=== PATIENT | male | born 1955 | race Caucasian/White ===

== ENCOUNTER → 2017-05-23 | Outpatient (CLI) | payer OTHER ==
[~2017-05-23] MED LIST: LISI40TA PO; MISC1CAP60 PO; MISCCAP3 PO
== END | disposition home or self-care (01) ==
LOC: C.CPL 16:32
PROVIDERS: ATTEND Otolaryngology
DX: Z01.810 Encounter for preprocedural cardiovascular examination (principal)

== ENCOUNTER → 2017-05-31 | Day surgery (SDC) | payer OTHER ==
[2017-05-30 07:30] VITALS: Ht 177.8 cm; Wt 72.7 kg
--- NOTE | 2017-05-30 15:56 | History and Physical: Surg Cnt ---
History & Physical Date May 30, 2017. Chief Complaint growth left cheek History of Present Illness The patient is a 61 year old male with complaints of enlarging lesion under left eye, ulcerating Additional History Hepatic Disease: No Endocrine Disorder: No Kidney Disease: No Hypertension: No Heart Disease: No Bleeding Tendencies: No Infectious Diseases: No Allergies Coded Allergies: No Known Allergies (Unverified , 05/30/17) Home Medications Scheduled Lisinopril (Zestril), 40 MG PO QPM Misc Natural Products (Saw [place]), 1 CAP PO QPM Misc Natural Products (Pumpkin Seed Oil), 1 CAP PO QPM Physical Examination Skin: warm/dry, no rash ENT: + pertinent finding (1.5 cm. raised lesion with ulceration left infrorbital) Diagnosis basal cell Ca. Plan of Treatment excision with nasolabial flap reconstruction, frozen section, explained risks
[~2017-05-31] VITALS: Ht 177.8 cm; Wt 72.7 kg
[~2017-05-31] MED LIST changes: +LIDO 2%/EPINEPHRINE 1:100000 20 ML VIAL INFIL ONE; +MUPIROCIN 2% OINT 22 GM TUBE ONE
--- NOTE | 2017-05-31 10:18 | History & Physical Bridge Note ---
H&P Re-Evaluation Bridge Note: I have examined the patient, reviewed the History & Physical and in the interval since the performance of the History & Physical I have noted the following changes of clinical significance: No changes noted
--- NOTE | 2017-05-31 12:33 | [facility] Operative Report ---
Operative Report Operative Date May 31, 2017. Pre-Operative Diagnosis Left Cheek Basal Cell Post-Operative Diagnosis Same Procedure(s) Performed Left Cheek Basal Cell Excision With Frozen Section Surgeon Dr. Betts Capital Project Engineer Surgeon(s) None Estimated Blood Loss 1 Findings Basal cell carcinoma involving medial and deep margin therefore additional margins were taken. Specimens A. Left Cheek Basal Cell - Tag at 12 o'clock. Sent as FROZEN Section at 1051. B. Deep and Medial Margins - suture at 12 o'clock. Sent as permanent specimen. C. Additional Deep Margin - Sent as permanent specimen. Anesthesia local Complication(s) None Disposition Recovery Room / PACU Implants None Indications 61-year-old gentleman with an ulcerative exophytic raised lesion of the left lower cheek of 1.5 cm diameter Description of Procedure The patient was brought to the operating room placed in the supine position and he was prepped with Hibiclens. The left infraorbital nerve was blocked with 1% Xylocaine with 1 100,000 strength epinephrine. Local was also used around the excision site. This was in the infraorbital area with approximately 1.5 cm elliptical raised lesion. The excision therefore was approximately 2 cm which was made using the #15 blade and then carried down to the fascial layer. Bleeders were controlled using the needlepoint Bovie. Frozen section showed involvement of the medial margin and also of the deep margin. Therefore an additional medial margin along with the deep margin was excised using the 15 blade and the iris scissors. An additional deep margin was also taken. A small arterial bleed at this deep side was clamped with a hemostat and then tied using a 4-0 chromic tie. Due to the large size of the defect, nasal labial flap was delineated, incised, and elevated to rotate into the defect. The subcutaneous layer was closed with interrupted 4-0 chromic sutures. The skin was closed with interrupted 5-0 nylon sutures rotating the nasal labial flap laterally into the defect. This was a superior based nasolabial flap with the medial margin placed along the nasolabial fold. Bactroban ointment was placed over the incision. He tolerated the procedure well was taken to the recovery area in satisfactory condition. I attest to the content of the Intraoperative Record and any orders documented therein. Any exceptions are noted below.
--- NOTE | 2017-05-31 12:37 | Discharge Instructions-SurgCtr ---
Discharge Instructions Date of Service May 31, 2017. Visit Reason for Visit: Left Cheek Basal Cell Discharge Discharge Diagnosis / Problem: basal cell carcinoma Discharge Goals Goal(s): Therapeutic intervention Activity Recommendations Activity Limitations: resume your previous activity Anesthesia . Post Anesthesia Instructions: If you have had General Anesthesia or IV Sedation: * Do not drive today. * Resume driving when surgeon permits. * Do not make important decisions or sign legal documents today. * Call surgeon for: 1. Temperature elevations greater than 101 degrees F. 2. Uncontrollable pain. 3. Excessive bleeding. 4. Persistent nausea and vomiting. 5. Medication intolerance (nausea, vomiting or rash). * For nausea and vomiting use only clear liquids such as: tea, soda, bouillon until nausea subsides, then gradually increase diet as tolerated. * If you have any concerns or questions, call your surgeon's office. If physician is unavailable and it is an emergency, call 911 or go to the nearest emergency room. . Instructions / Follow-Up Instructions / Follow-Up 1 used ice pack on the left cheek. 2 Apply Bactroban ointment twice a day after cleaning with peroxide and Q-tips [address] Betts's office 1 week from Sunday for suture removal Used Tylenol or ibuprofen for discomfort. Call Dr. Betts, cell phone for any problems Diet Recommendations Home Diet: no limitations Procedures Procedures Performed: Left Cheek Basal Cell Excision With Frozen Section Pending Studies Studies pending at discharge: yes List of pending studies: Pathology Medical Emergencies . Who to Call and When: Medical Emergencies: If at any time you feel your situation is an emergency, please call 911 immediately. . Non-Emergent Contact Non-Emergency issues call your: Primary Care Provider . . "Provider Documentation" section prepared by Urvashi Betts. . [place] Drug Monitoring Program Search Results: no issues identified
[2017-05-31 12:51] VITALS: BP 177/88; PULSE 86; TEMP 37.7; O2SAT 97
== END | disposition home or self-care (01) ==
LOC: X.SURG 07:18
PROVIDERS: ATTEND Otolaryngology
DX: C44.319 Basal cell carcinoma of skin of other parts of face (principal); Z79.899 Other long term (current) drug therapy

== ENCOUNTER → 2017-11-08 | Day surgery (SDC) | payer OTHER ==
--- NOTE | 2017-11-07 12:06 | History and Physical: Surg Cnt ---
History & Physical Date Nov 07, 2017. Chief Complaint growth left face History of Present Illness The patient is a 61 year old male with complaints of basal cell Ca left cheek Additional History Hepatic Disease: No Endocrine Disorder: No Kidney Disease: No Hypertension: No Heart Disease: No Bleeding Tendencies: No Infectious Diseases: No Allergies Coded Allergies: No Known Allergies (Unverified , 05/31/17) Home Medications Scheduled Lisinopril (Zestril), 40 MG PO QPM Misc Natural Products (Saw Rule), 1 CAP PO QPM Misc Natural Products (Pumpkin Seed Oil), 1 CAP PO QPM Physical Examination Skin: warm/dry, no rash Eyes: normal inspection, EOMI, sclerae normal ENT: normal ENT inspection, pharynx normal Head: normocephalic, atraumatic Neck: supple, no adenopathy, trachea midline Respiratory/Chest: lungs clear, normal breath sounds, no respiratory distress Cardiovascular: regular rate, rhythm, no edema, no murmur Abdomen / GI: normal bowel sounds, non tender Back: normal inspection Extremities: normal inspection, normal range of motion Neurologic/Psych: no motor/sensory deficits, alert, normal reflexes, oriented x 3 Diagnosis basal cell Ca Plan of Treatment excision left face with frozen section
[2017-11-07 13:27] VITALS: Ht 177.8 cm; Wt 72.7 kg
[~2017-11-08] VITALS: Ht 177.8 cm; Wt 72.7 kg
[~2017-11-08] MED LIST changes: +BACITRACIN OINT 15 GM TUBE ONE; +IBUPROFEN 600 MG TAB PO PRN; -MUPIROCIN 2% OINT 22 GM TUBE ONE; +OXYCODONE/ACETAMINOPHEN 5-325 TAB PO PRN; +SODIUM CHLORIDE 0.9% 1000ML 1,000 ML IV SCH
--- NOTE | 2017-11-08 11:22 | Discharge Instructions-SurgCtr ---
Discharge Instructions Date of Service Nov 08, 2017. Visit Reason for Visit: Left Face Basal Cell Discharge Discharge Diagnosis / Problem: same Discharge Goals Goal(s): Diagnostic testing Activity Recommendations Activity Limitations: resume your previous activity Anesthesia . Post Anesthesia Instructions: If you have had General Anesthesia or IV Sedation: * Do not drive today. * Resume driving when surgeon permits. * Do not make important decisions or sign legal documents today. * Call surgeon for: 1. Temperature elevations greater than 101 degrees F. 2. Uncontrollable pain. 3. Excessive bleeding. 4. Persistent nausea and vomiting. 5. Medication intolerance (nausea, vomiting or rash). * For nausea and vomiting use only clear liquids such as: tea, soda, bouillon until nausea subsides, then gradually increase diet as tolerated. * If you have any concerns or questions, call your surgeon's office. If physician is unavailable and it is an emergency, call 911 or go to the nearest emergency room. . Instructions / Follow-Up Instructions / Follow-Up Return to Dr. Simeon's office 1 week from Sunday for suture removal Diet Recommendations Home Diet: no limitations Pending Studies Studies pending at discharge: yes List of pending studies: Pathology Medical Emergencies . Who to Call and When: Medical Emergencies: If at any time you feel your situation is an emergency, please call 911 immediately. . Non-Emergent Contact Non-Emergency issues call your: Primary Care Provider . . "Provider Documentation" section prepared by Urvashi Betts. . [place] Drug Monitoring Program Search Results: no issues identified
--- NOTE | 2017-11-08 12:28 | [facility] Post Operative Brief Note ---
Immediate Operative Summary Operative Date Nov 08, 2017. 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 Betts Research Intern Surgeon(s) none Estimated Blood Loss 2ml Findings Consistent with Post-Op Diagnosis Specimens Frozen section #1: Left face lesiion (tag is medial), specimen sent at 1151 Drains None Anesthesia Type Local Complication(s) none Disposition Accompanied Pt To Recover: yes Disposition: Recovery Room / PACU
[2017-11-08 12:30] VITALS: TEMP 37
[2017-11-08 12:55] VITALS: BP 146/96; PULSE 70; O2SAT 100
--- NOTE | 2017-11-08 15:12 | OPERATIVE REPORT ---
DATE OF OPERATION: 11/08/2017 PREOPERATIVE DIAGNOSIS: Basal cell carcinoma of the left face. POSTOPERATIVE DIAGNOSIS: Benign spindle cell tumor. PROCEDURE: Excision of spindle cell tumor, left face. SURGEON: Dr. Betts. ANESTHESIA: Strict local. COMPLICATIONS: None. BLOOD LOSS: 2 mL. HISTORY OF PRESENT ILLNESS: A 61-year-old male with a history of basal cell excision last year, developed recurrent growth on the left side of the face and desires definitive therapy. DESCRIPTION OF PROCEDURE: The patient brought into operating room and placed in the supine position. He was prepped with Betadine paint and draped in the usual sterile manner. Local anesthesia was obtained by injecting with 2% Xylocaine with 1:100,000 strength epinephrine. An elliptical incision was made around the lesion of the left face using the 15 blade, carried down through the skin and subcutaneous layer and excising the deep margin. This was sent to pathology for frozen section, which showed spindle cell tumor, benign. Then, the incision was closed with interrupted 6-0 nylon sutures after controlling hemostasis with the needle point Bovie. The fascia tolerated the procedure well and was taken to recovery area in satisfactory condition. I attest to the content of the Intraoperative Record and any orders documented therein. Any exception s are noted below.
== END | disposition home or self-care (01) ==
LOC: X.SURG 08:46
PROVIDERS: ATTEND Otolaryngology
DX: D36.11 Benign neoplasm of peripheral nerves and autonomic nervous system of face, head, and neck (principal); Z79.899 Other long term (current) drug therapy; D36.7 Benign neoplasm of other specified sites